=== PATIENT | female | born 1955 | race Caucasian/White ===

== ENCOUNTER 2020-03-24 12:24 | Emergency (ER) | payer OTHER ==
[~2020-03-24] VITALS: Ht 165.1 cm; Wt 104.3 kg
[2020-03-24] MEDS ORDERED: XANAX 0.5 MG0.5 MG PO (12:43)
[2020-03-24] MEDS ORDERED: PRILOSEC OTC20 MG PO (12:44)
[2020-03-24] MEDS ORDERED: ANXIETY PILL (12:44)
[2020-03-24] MEDS ORDERED: BLOOD PRESSURE (12:45)
[2020-03-24] MEDS ORDERED: WATER PILL (12:45)
[2020-03-24 13:59] LABS: ABSOLUTE LYMPHOCYTES 0.8 thou/uL (0.8-5.3); ABSOLUTE MONOCYTES 0.6 thou/uL (0.0-1.2); BASOPHILS 0.6 %; EOSINOPHILS 0.6 %; HEMATOCRIT 45.7 % (37.0-47.0); HEMOGLOBIN 15.8 gm/dL (12.0-15.0); LYMPHOCYTES 11.1 %; MCH 31.7 pg (26.0-34.0); MCHC 34.6 g/dL (28.0-37.0); MCV 91.8 fL (80.0-100.0); MONOCYTES 7.8 %; MPV 7.7 fl. (7.2-11.1); NUCLEATED RBCS 0 /100WBC; PLATELET COUNT* 187 thou/uL (150-400); POLYS 79.9 %; RBC 4.98 mil/uL (4.20-5.00); RDW-CV 13.6 % (10.5-14.5); WBC 7.5 thou/uL (4.0-11.0)
[2020-03-24 14:05] LABS: CALCIUM 8.6 mg/dL (8.5-10.1); CREATININE 1.4 mg/dL (0.6-1.3); POTASSIUM 4.2 mmol/L (3.5-5.1)
[2020-03-24 14:09] LABS: ALBUMIN 3.6 g/dL (3.4-5.0); TOTAL BILIRUBIN 0.5 mg/dL (<0.1-1.0); TOTAL PROTEIN 7.1 g/dL (6.4-8.2)
[2020-03-24 14:26] LABS: URINE BILIRUBIN NEGATIVE (Negative); URINE BLOOD NEGATIVE (Negative); URINE CLARITY CLEAR; URINE COLOR YELLOW; URINE GLUCOSE-RANDOM NEGATIVE (Negative); URINE KETONES NEGATIVE (Negative); URINE LEUKOCYTES-REFLEX 1+ (Negative); URINE NITRITE-REFLEX NEGATIVE (Negative); URINE PROTEIN NEGATIVE (Negative); URINE UROBILINOGEN 0.2 E.U./dl (0.2-1.0)
[2020-03-24 14:32] LABS: SQUAMOUS 4-10 Moderate /LPF (0-3); URINE WBC-REFLEX 0-5 Rare /HPF (0-5)
[2020-03-24 14:33] LABS: CASTS None Seen /LPF (None Seen); CRYSTALS None Seen /LPF (None Seen); MUCUS None Seen strn/LPF (None Seen); URINE RBC None Seen /HPF (0-2)
[2020-03-24] MEDS ORDERED: MACROBID 100 M100 M1 PO (16:25)
[2020-03-24 16:32] VITALS: BP 145/79
--- NOTE | 2020-03-24 17:19 | EKG ---
[place] [address] ELECTROCARDIOGRAM REPORT Name: FABI BRAXTON Room: [facility]#: [id number] Admission: 03/24/20 Attend Phys: Discharge: 03/24/20 Date of : 51 Date of Service: 03/24/20 1243 Report #: [id number] THIS REPORT FOR: //name// [facility] ED Test Date: 2020-03-24 Test Time: 12:43:25 Pat Name: FABI BRAXTON Department: Room: Gender: Sane Rn: : 1955 Requested By: Liberty Gunter Order Number: [id number] Kianna MD: Jian Loyd Measurements Intervals [place] Rate: 83 P: 66 CO: 129 QRS: 11 QRSD: 99 T: 30 QT: 398 QTc: 468 Interpretive Statements Sinus rhythm Consider left atrial enlargement No previous ECG available for comparison Electronically Signed On 03-24-2020 17:19:00 CDT by Jian Loyd [email or web address] <ELECTRONICALLY SIGNED> By: Jian Loyd MD, [facility] 03/24/20 1719 1243 124 Jian Loyd MD, FACC /EPI
== END 2020-03-24 16:33 | disposition home or self-care (01) ==
LOC: M.ERS 12:24
PROVIDERS: Personal Emergency Response Attendant
DX: R42 Dizziness and giddiness (principal); N39.0 Urinary tract infection, site not specified; I10 Essential (primary) hypertension; Z90.49 Acquired absence of other specified parts of digestive tract; Z79.899 Other long term (current) drug therapy

== ENCOUNTER → 2020-12-05 | Outpatient (CLI) | payer OTHER ==
[~2020-12-05] MED LIST: ANXIETY PILL; BLOOD PRESSURE; MACROBID 100 M100 M1 PO; PRILOSEC OTC20 MG PO; WATER PILL; XANAX 0.5 MG0.5 MG PO
--- NOTE | 2020-12-05 16:15 | 2DMMODE ---
[place] [address] 2 D/M-MODE ECHOCARDIOGRAM Name: FOXFABI Room: [facility]#: [id number] Admission: 12/05/20 Attend Phys: JACEY Bhakta Discharge: Date of : 51 Date of Service: 12/05/20 1615 Report #: [id number] THIS REPORT FOR: cc: Velasquez Armstrong,Velasquez Win,Alirio Rosa MD [facility] ~ APPROVED REPORT Study performed: 12/05/2020 09:50:41 EXAM: Comprehensive 2D, Doppler, and color-flow Echocardiogram Patient Location: Out-Patient BSA: 2.20 HR: 90 bpm BP: 132/76 mmHg Other Information Study Quality: Fair Indications Murmur 2D Dimensions IVSd: 10.82 (7-11mm) LVOT Diam: 20.47 (18-24mm) LVDd: 46.67 mm PWd: 10.18 (7-11mm) Ascending Ao: 29.00 (22-36mm) LVDs: 31.81 (25-40mm) Aortic Root: 29.50 mm Volumes Left Atrial Volume (Systole) LA ESV Index: 18.90 mL/m2 Aortic Valve AoV Peak Avery.: 1.71 m/s AO Peak Gr.: 11.71 mmHg LVOT Max P.50 mmHg AO Mean Gr.: 6.38 mmHg LVOT Mean P.70 mmHg LVOT Max V: 1.37 m/s AO V2 VTI: 32.15 cm LVOT Mean V: 0.88 m/s HELIO (VTI): 2.70 cm2 LVOT V1 VTI: 26.40 cm Mitral Valve E/A Ratio: 1.01 [place] [address] 2 D/M-MODE ECHOCARDIOGRAM Name: FABI BRAXTON Room: [facility]#: [id number] Admission: 12/05/20 Attend Phys: JACEY Bhakta Discharge: Date of : 51 Date of Service: 12/05/20 1615 Report #: [id number] MV Decel. Time: 221.70 ms MV E Max Avery.: 0.64 m/s MV PHT: 64.29 ms MVA (PHT): 3.42 cm2 TDI E/Lateral E': 4.92 E/Medial E': 7.11 Medial E' Avery.: 0.09 m/s Lateral E' Avery.: 0.13 m/s Pulmonary Valve PV Peak Avery.: 1.22 m/s PV Peak Gr.: 5.98 mmHg Left Ventricle The left ventricle is normal size. There is normal LV segmental wall motion. There is normal left ventricular wall thickness. Left ventricular systolic function is normal. The left ventricular ejection fraction is within the normal range. LVEF is 55-60%. Grade I - abnormal relaxation pattern. Right Ventricle The right ventricle is normal size. The right ventricular systolic function is normal. Atria The left atrium size is normal. The right atrium size is normal. Aortic Valve Aortic valve is calcified. Aortic valve is not well visualized. No aortic regurgitation is present. There is no aortic valvular stenosis. Mitral Valve The mitral valve is normal in structure. There is no mitral valve regurgitation noted. No evidence of mitral valve stenosis. Tricuspid Valve The tricuspid valve is normal in structure. There is trace tricuspid valve regurgitation noted. Pulmonic Valve Pulmonic valve is not well visualized. There is no pulmonic valvular regurgitation[place] [address] 2 D/M-MODE ECHOCARDIOGRAM Name: FABI BRAXTON Room: [facility]#: [id number] Admission: 12/05/20 Attend Phys: JACEY Bhakta Discharge: Date of : 51 Date of Service: 12/05/20 1615 Report #: [id number] The aortic root is normal in size. IVC is normal in size and collapses >50% with inspiration. Pericardium There is no pericardial effusion. <Conclusion> Left ventricular systolic function is normal. The left ventricular ejection fraction is within the normal range. Aortic valve is calcified. Aortic valve is not well visualized. <ELECTRONICALLY SIGNED> By: Alirio Tipton MD, FACC 12/05/20 1615 1615 1615 Alirio Tipton MD, FACC /INF
== END ==
LOC: M.CRD 09:46
PROVIDERS: ATTEND Nurse Practitioner Family
DX: I35.1 Nonrheumatic aortic (valve) insufficiency (principal)